=== PATIENT | male | born 1985 | race Two or more races ===

== ENCOUNTER 2024-10-09 23:01 | Emergency (ER) | payer MEDICAID, OTHER ==
[~2024-10-09] VITALS: Ht 162.6 cm; Wt 79.4 kg
[2024-10-09 23:13] VITALS: TEMP 98.5
[2024-10-09] MEDS ORDERED: ONDANSETRON HCL/PF 4 MG/2 ML VIAL ONE (23:18)
[2024-10-09] MEDS: MORPHINE SULFATE INJ 2 MG/ML DISP.SYRIN IV ONE (23:19)
[2024-10-09] MEDS ORDERED: MORPHINE SULFATE INJ 4 MG/ML DISP.SYRIN ONE (23:19)
[2024-10-09] MEDS: ONDANSETRON HCL/PF - ER 4 MG/2 ML VIAL IV ONE (23:19)
[2024-10-09 23:45] VITALS: BP 139/80; O2SAT 95
== END 2024-10-09 23:55 | disposition short-term general hospital (02) ==
LOC: ER 23:04
DX: S21.231A Puncture wound without foreign body of right back wall of thorax without penetration into thoracic cavity, initial encounter (principal); W45.8XXA Other foreign body or object entering through skin, initial encounter; Y93.89 Activity, other specified; Y92.89 Other specified places as the place of occurrence of the external cause; Y99.8 Other external cause status
CPT/HCPCS: 99285; 96374; 71045; 96375; J2270; J2405